=== PATIENT | male | born 1980 | race Caucasian/White ===

== ENCOUNTER 2017-09-17 20:31 | Emergency (ER) | payer MEDICARE, MEDICAID ==
[2017-09-17] MEDS ORDERED: Ibuprofen TAB* 800 MG PO ONE (22:35)
[2017-09-18 00:09] VITALS: BP 128/87
--- NOTE | 2017-09-18 05:34 | ED ---
Gloria Dyer Elizabeth, scribed for Can Wilson MD on 09/17/17 at 2242 . Upper Extremity Pain - HPI Summary HPI Summary: This patient is a 37 year old M presenting to [facility] with a chief complaint of intermittent right shoulder pain since 3 months ago. The patient rates the pain 8/10 in severity. Symptoms aggravated by movement. Symptoms alleviated by nothing. Per triage note, the patient reports that the pain began around the same time he started pushing buggies at [facility]. Patient denies any other pain. Pt denies any numbness, tingling, or weakness. - History of Current Complaint Chief Complaint: EDShoulderClavicleInj Stated Complaint: RT SHLDR PAIN Time Seen by Provider: 09/17/17 22:07 Hx Obtained From: Patient Onset/Duration: Started Weeks Ago - 3 months ago, Atraumatic, Still Present Timing: Intermittent Severity Initially: Moderate Severity Currently: Moderate Pain Location: Shoulder - right shoulder Aggravating Factor(s): Movement Alleviating Factor(s): Nothing Associated Signs & Symptoms: Negative: Swelling, Redness, Chest Pain, Back Pain , Neck Pain - Allergies/Home Medications Allergies/Adverse Reactions: Allergies Allergy/AdvReac Type Severity Reaction Status Date / Time MS Penicillins [Penicillins] Allergy Unknown Verified 02/05/15 20:31 Reaction Details PMH/Surg Hx/FS Hx/Imm Hx Endocrine/Hematology History: Denies: Hx Diabetes, Hx Thyroid Disease Cardiovascular History: Denies: Hx Hypertension Respiratory History: Denies: Hx Asthma, Hx Chronic Obstructive Pulmonary Disease (COPD) GI History: Denies: Hx Ulcer Infectious Disease History: No Infectious Disease History: Denies: Hx Clostridium Difficile, Hx Hepatitis, Hx Human Immunodeficiency Virus (HIV), Hx of Known/Suspected MRSA, Hx Shingles, Hx Tuberculosis, History Other Infectious Disease, Traveled Outside the [place] in Last 30 Days - Family History Known Family History: Positive: None - patient denies relevant FHx - Social History Alcohol Use: None Substance Use Type: Reports: None Smoking Status (MU): Current Every Day Smoker Type: Cigarettes, Smokeless Tobacco Amount Used/How Often: < 1 PPD Length of Time of Smoking/Using Tobacco: 1 month Review of Systems Negative: Fever Negative: Epistaxis Negative: Chest Pain Negative: Abdominal Pain Musculoskeletal: Other - right shoulder pain All Other Systems Reviewed And Are Negative: Yes Physical Exam - Summary Physical Exam Summary: Appearance: Well-appearing, no distress, Well-nourished Skin: Warm, color reflects adequate perfusion Head: Normal Head/Face inspection Eyes: Conjunctiva clear ENT: Normal inspection Neck: Supple, no nodes, no JVD. Respiratory: Lungs clear, Normal breath sounds, no respiratory distress Cardio: RRR, No murmur, pulses normal, brisk capillary refill Abdomen: soft, nontender, no guarding, no rebound Bowel sounds: present Musculoskeletal: Strength Intact/ ROM intact. No calf tenderness. No edema. Right shoulder nontender to palpation, tenderness with abduction at 90 degrees, no erythema, no swelling, no deformity Neuro: Alert, muscle tone normal, facial symmetry, speech normal, sensory/motor intact Psychological: Normal Triage Information Reviewed: Yes Vital Signs On Initial Exam: Initial Vitals Temp Pulse Resp BP Pulse Ox 98.1 F 74 16 142/96 99 09/17/17 20:34 09/17/17 20:34 09/17/17 20:34 09/17/17 20:34 09/17/17 20:34 Vital Signs Reviewed: Yes Diagnostics - Vital Signs Vital Signs Temp Pulse Resp BP Pulse Ox 09/17/17 20:34 98.1 F 74 16 142/96 99 - Laboratory Lab Statement: Any lab studies that have been ordered have been reviewed, and results considered in the medical decision making process. - Radiology Right Shoulder XR Xray Interpretation: No Acute Changes - normal XR, no fractures or dislocations Radiology Interpretation Completed By: ED Physician - Dr. Wilson, pending official report. Course/Dx - Diagnoses Differential Diagnosis/HQI/PQRI: Positive: Arthritis, Bursitis, Contusion, Fracture (Open), Hematoma, Laceration, Osteomyelitis, Septic Arthritis, Strain, Sprain Provider Diagnoses: Rotator cuff injury Discharge - Sign-Out/Discharge Documenting (check all that apply): Discharge/Admit/Transfer - Discharge Plan Condition: Stable Disposition: HOME Discharge Disposition Comment: discharge home Prescriptions: Ibuprofen TAB* [Motrin TAB* 800 MG] 800 mg PO Q6H 7 Days #20 tab Ibuprofen TAB* [Motrin TAB* 800 MG] 800 mg PO Q6H 7 Days #20 tab Patient Education Materials: Rotator Cuff Injury (ED) Forms: *Work Release Referrals: Mildred Payne MD [Primary Care Provider] - 2 Days Ajit Alaniz MD [Medical Doctor] - 3 Days Additional Instructions: Follow up with primary care physician in 2-3 days. Return to the emergency department with any new or worsening symptoms. - Billing Disposition and Condition Condition: STABLE Disposition: Home The documentation as recorded by the Gloria pinzon Elizabeth accurately reflects the service I personally performed and the decisions made by , Can Wilson MD.
--- NOTE | 2017-09-18 07:50 | RAD ---
HISTORY: shoulder pain COMPARISONS: None VIEWS: 4, Frontal internal rotation, external rotation, outlet, and axillary views of the right shoulder FINDINGS: BONE DENSITY: Normal. BONES: There is no displaced fracture. JOINTS: There is no arthropathy. ALIGNMENT: There is no dislocation. SOFT TISSUES: Unremarkable. OTHER FINDINGS: None. IMPRESSION: NO ACUTE OSSEOUS INJURY. IF SYMPTOMS PERSIST, RECOMMEND REPEAT IMAGING.
== END 2017-09-18 00:03 | disposition home or self-care (01) ==
LOC: ED 20:31
DX: S46.001A Unspecified injury of muscle(s) and tendon(s) of the rotator cuff of right shoulder, initial encounter (principal); X58.XXXA Exposure to other specified factors, initial encounter; Y92.9 Unspecified place or not applicable; F17.210 Nicotine dependence, cigarettes, uncomplicated; F17.290 Nicotine dependence, other tobacco product, uncomplicated; Z88.0 Allergy status to penicillin
CPT/HCPCS: 99282; A9270-GY

== ENCOUNTER 2017-11-10 01:42 | Emergency (ER) | payer MEDICARE, MEDICAID ==
[2017-11-10] MEDS ORDERED: NS 0.9% 1000 ML* 1,000 ML IV ONE ×2 (01:54→02:17)
[2017-11-10] MEDS ORDERED: Ketorolac INJ* 30 MG/ML 1 ML VIAL IV PUSH ONE ×2 (01:54→02:17)
[2017-11-10] MEDS ORDERED: Ketorolac INJ* 60 MG/2 ML VIAL IM ONE (02:14)
[2017-11-10 02:16] LABS: ABS Basophils 0.1 10^3/ul (0-0.2); ABS Eosinophils 0.1 10^3/ul (0-0.6); ABS Lymphocytes 1.4 10^3/ul (1.0-4.8); ABS Neutrophils 10.5 10^3/ul (1.5-7.7); ABS Nucleated RBC 0 10^3/ul; Eosinophil % 0.5 % (0-6); Hematocrit 40 % (42-52); Lymphocyte % 10.5 % (25-47); Mean Corpuscular HGB Conc 35 g/dl (31-36); Mean Corpuscular Hemoglobin 31 pg (27-31); Mean Corpuscular Volume 90 fL (80-94); Nucleated Red Blood Cells % 0.1; Platelet Count 198 10^3/ul (150-450); Red Blood Count 4.49 10^6/ul (4.00-5.40); Red Cell Distribution Width 14 % (10.5-15); White Blood Count 13.1 10^3/ul (3.5-10.8)
[2017-11-10] MEDS ORDERED: Metoclopramide IV* 5 MG/ML 2 ML VIAL IV ONE (02:16)
[2017-11-10 02:41] LABS: INR 0.92 (0.77-1.02)
[2017-11-10 02:46] LABS: Urine Appearance Clear; Urine Blood 1+ (Negative); Urine Color Yellow; Urine Ketones Negative (Negative); Urine Protein Negative (Negative); Urine Red Blood Cell 3+(>10/hpf) (Absent); Urine Specific Gravity 1.014 (1.010-1.030); Urine Urobilinogen Negative (Negative); Urine White Blood Cell Trace(0-5/hpf) (Absent)
[2017-11-10] MEDS ORDERED: Tamsulosin CAP* 0.4 MG PO ONE (02:47)
[2017-11-10 02:50] LABS: EGFR Non-African American 50.3 (>60)
[2017-11-10 04:16] VITALS: BP 126/75
--- NOTE | 2017-11-10 04:19 | ED ---
Abdominal Pain/Male - HPI Summary HPI Summary: This is scribe Geovanny Guardado documenting for attending Steve Payton MD. Patient is a 37 y/o M BIBA w/ c/o left flank pain onsetting yesterday. On triage , pain is rated 8/10 and nothing is noted to aggravate/alleviate Sx. He states pain does not radiate and notes pain is currently lessening. N/V are denied. Home medications and allergies were reviewed. I, Dr. Payton, personally performed the services described in this documentation as scribed in my presence and it is both accurate and complete. - History of Current Complaint Chief Complaint: EDFlankSivain Stated Complaint: FLANK PAIN Time Seen by Provider: 11/10/17 01:45 Hx Obtained From: Patient Onset/Duration: Lasting Days - onset yesterday, Still Present - pain is reported to be lessening Timing: Constant Severity Currently: Severe Pain Intensity: 8 Pain Scale Used: 0-10 Numeric - 8/10 Location: Flank - left-side Radiates: No Aggravating Factor(s): Nothing Alleviating Factor(s): Nothing - Allergies/Home Medications Allergies/Adverse Reactions: Allergies Allergy/AdvReac Type Severity Reaction Status Date / Time MS Penicillins [Penicillins] Allergy Unknown Verified 02/05/15 20:31 Reaction Details Home Medications: Home Medications Calcium Carbonate/Vitamin D3 [Calcium 600+D [place]] 1 tab PO DAILY [History Confirmed 11/10/17] Loratadine 10 mg PO DAILY 11/10/17 [History Confirmed 11/10/17] Naproxen [Naproxen 500 mg tab] 1,000 mg PO Q12HR PRN 11/10/17 [History Confirmed 11/10/17] PMH/Surg Hx/FS Hx/Imm Hx Endocrine/Hematology History: Denies: Hx Diabetes, Hx Thyroid Disease Cardiovascular History: Denies: Hx Hypertension Respiratory History: Denies: Hx Asthma, Hx Chronic Obstructive Pulmonary Disease (COPD) GI History: Denies: Hx Ulcer Infectious Disease History: No Infectious Disease History: Denies: Hx Clostridium Difficile, Hx Hepatitis, Hx Human Immunodeficiency Virus (HIV), Hx of Known/Suspected MRSA, Hx Shingles, Hx Tuberculosis, History Other Infectious Disease, Traveled Outside the [place] in Last 30 Days - Family History Known Family History: Negative: Blood Disorder - Social History Alcohol Use: None Substance Use Type: Reports: None Smoking Status (MU): Current Every Day Smoker Type: Cigarettes, Smokeless Tobacco Amount Used/How Often: < 1 PPD Length of Time of Smoking/Using Tobacco: 1 month Review of Systems Negative: Vomiting, Nausea Positive: flank pain - left-sided All Other Systems Reviewed And Are Negative: Yes Physical Exam - Summary Physical Exam Summary: VITAL SIGNS: Reviewed. GENERAL: Patient is a well-developed and nourished male who is lying comfortable in the stretcher. Patient is not in any acute respiratory distress. HEAD AND FACE: No signs of trauma. No ecchymosis, hematomas or skull depressions. No sinus tenderness. EYES: PERRLA, EOMI x 2, No injected conjunctiva, no nystagmus. EARS: Hearing grossly intact. Ear canals and tympanic membranes are within normal limits. MOUTH: Oropharynx within normal limits. NECK: Supple, trachea is midline, no adenopathy, no JVD, no carotid bruit, no c- spine tenderness, neck with full ROM. CHEST: Symmetric, no tenderness at palpation LUNGS: Clear to auscultation bilaterally. No wheezing or crackles. CVS: Regular rate and rhythm, S1 and S2 present, no murmurs or gallops appreciated. ABDOMEN: Soft, non-tender. No signs of distention. No rebound no guarding, and no masses palpated. Bowel sounds are normal. EXTREMITIES: FROM in all major joints, no edema, no cyanosis or clubbing. NEURO: Alert and oriented x 3. No acute neurological deficits. Speech is normal and follows commands. SKIN: Dry and warm Triage Information Reviewed: Yes Vital Signs On Initial Exam: Initial Vitals Temp Pulse Resp BP Pulse Ox 98.0 F 73 20 161/100 94 11/10/17 01:46 11/10/17 01:46 11/10/17 01:46 11/10/17 01:46 11/10/17 01:46 Vital Signs Reviewed: Yes Diagnostics - Vital Signs Vital Signs Temp Pulse Resp BP Pulse Ox 11/10/17 01:46 98.0 F 73 20 161/100 94 - Laboratory Lab Results: Lab Results 11/10/17 11/10/17 11/10/17 Range/Units 02:07 02:07 02:09 WBC 13.1 H (3.5-10.8) 10^3/ul RBC 4.49 (4.00-5.40) 10^6/ul Hgb 14.0 (14.0-18.0) g/dl Hct 40 L (42-52) % MCV 90 (80-94) fL MCH 31 (27-31) pg MCHC 35 (31-36) g/dl RDW 14 (10.5-15) % Plt Count 198 (150-450) 10^3/ul MPV 8.0 (7.4-10.4) um3 Neut % (Auto) 80.3 (38-83) % Lymph % (Auto) 10.5 L (25-47) % Webb % (Auto) 7.9 H (0-7) % Eos % (Auto) 0.5 (0-6) % Baso % (Auto) 0.8 (0-2) % Absolute Neuts (auto) 10.5 H (1.5-7.7) 10^3/ul Absolute Lymphs (auto) 1.4 (1.0-4.8) 10^3/ul Absolute Monos (auto) 1.0 H (0-0.8) 10^3/ul Absolute Eos (auto) 0.1 (0-0.6) 10^3/ul Absolute Basos (auto) 0.1 (0-0.2) 10^3/ul Absolute Nucleated RBC 0 10^3/ul Nucleated RBC % 0.1 INR (Anticoag Therapy) 0.92 (0.77-1.02) APTT 33.4 (26.0-36.3) seconds Sodium 137 (135-145) mmol/L Potassium 3.5 (3.5-5.0) mmol/L Chloride 101 (101-111) mmol/L Carbon Dioxide 26 (22-32) mmol/L Anion Gap 10 (2-11) mmol/L BUN 19 (6-24) mg/dL Creatinine 1.56 H (0.67-1.17) mg/dL Est GFR ( Amer) 60.9 (>60) Est GFR (Non-Af Amer) 50.3 (>60) BUN/Creatinine Ratio 12.2 (8-20) Glucose 105 H (70-100) mg/dL Calcium 10.3 (8.6-10.3) mg/dL Magnesium 1.7 L (1.9-2.7) mg/dL Total Bilirubin 0.50 (0.2-1.0) mg/dL AST 28 (13-39) U/L ALT 25 (7-52) U/L Alkaline Phosphatase 62 (34-104) U/L Total Creatine Kinase 139 (10-223) U/L C-Reactive Protein 9.06 H (<8.01) mg/L Total Protein 7.1 (6.4-8.9) g/dL Albumin 4.4 (3.2-5.2) g/dL Globulin 2.7 (2-4) g/dL Albumin/Globulin Ratio 1.6 (1-3) Lipase 16 (11.0-82.0) U/L Urine Color Urine Appearance Urine pH (5-9) Ur Specific Central (1.010-1.030) Urine Protein (Negative) Urine Ketones (Negative) Urine Blood (Negative) Urine Nitrate (Negative) Urine Bilirubin (Negative) Urine Urobilinogen (Negative) Ur Leukocyte Esterase (Negative) Urine WBC (Auto) (Absent) Urine RBC (Auto) (Absent) Urine Bacteria (Absent) Urine Glucose (Negative) 11/10/17 Range/Units 02:16 WBC (3.5-10.8) 10^3/ul RBC (4.00-5.40) 10^6/ul Hgb (14.0-18.0) g/dl Hct (42-52) % MCV (80-94) fL MCH (27-31) pg MCHC (31-36) g/dl RDW (10.5-15) % Plt Count (150-450) 10^3/ul MPV (7.4-10.4) um3 Neut % (Auto) (38-83) % Lymph % (Auto) (25-47) % Webb % (Auto) (0-7) % Eos % (Auto) (0-6) % Baso % (Auto) (0-2) % Absolute Neuts (auto) (1.5-7.7) 10^3/ul Absolute Lymphs (auto) (1.0-4.8) 10^3/ul Absolute Monos (auto) (0-0.8) 10^3/ul Absolute Eos (auto) (0-0.6) 10^3/ul Absolute Basos (auto) (0-0.2) 10^3/ul Absolute Nucleated RBC 10^3/ul Nucleated RBC % INR (Anticoag Therapy) (0.77-1.02) APTT (26.0-36.3) seconds Sodium (135-145) mmol/L Potassium (3.5-5.0) mmol/L Chloride (101-111) mmol/L Carbon Dioxide (22-32) mmol/L Anion Gap (2-11) mmol/L BUN (6-24) mg/dL Creatinine (0.67-1.17) mg/dL Est GFR ( Amer) (>60) Est GFR (Non-Af Amer) (>60) BUN/Creatinine Ratio (8-20) Glucose (70-100) mg/dL Calcium (8.6-10.3) mg/dL Magnesium (1.9-2.7) mg/dL Total Bilirubin (0.2-1.0) mg/dL AST (13-39) U/L ALT (7-52) U/L Alkaline Phosphatase (34-104) U/L Total Creatine Kinase (10-223) U/L C-Reactive Protein (<8.01) mg/L Total Protein (6.4-8.9) g/dL Albumin (3.2-5.2) g/dL Globulin (2-4) g/dL Albumin/Globulin Ratio (1-3) Lipase (11.0-82.0) U/L Urine Color Yellow Urine Appearance Clear Urine pH 6.0 (5-9) Ur Specific Central 1.014 (1.010-1.030) Urine Protein Negative (Negative) Urine Ketones Negative (Negative) Urine Blood 1+ A (Negative) Urine Nitrate Negative (Negative) Urine Bilirubin Negative (Negative) Urine Urobilinogen Negative (Negative) Ur Leukocyte Esterase Negative (Negative) Urine WBC (Auto) Trace(0-5/hpf) (Absent) Urine RBC (Auto) 3+(>10/hpf) A (Absent) Urine Bacteria Absent (Absent) Urine Glucose Negative (Negative) Result Diagrams: 11/10/17 02:07 11/10/17 02:07 Lab Statement: Any lab studies that have been ordered have been reviewed, and results considered in the medical decision making process. - CT CT abd/pel CT Interpretation: Positive (See Comments) CT Interpretation Completed By: Radiologist - Mild left hydronephrosis. Obstructing stone (4 mm size) at the left UV junction. 2 or 3 punctate non- obstructing right intrarenal stones. This report was reviewed by ED physician. Re-Evaluation - Re-Evaluation First Eval Re-Evaluation Time: 04:33 Comment: Discussed results of CT with patient. He will be discharged to home and follow up with [facility] in 1-2 days. Patient is agreeable with plan. Abdominal Pain Fem Course/Dx - Course Assessment/Plan: Patient is a 37 y/o M BIBA w/ c/o left flank pain onsetting yesterday. On triage, pain is rated 8/10 and nothing is noted to aggravate/ alleviate Sx. He states pain does not radiate and notes pain is currently lessening. N/V denied. Home medications and allergies were reviewed. Physical exam showed no abnormal findings. While in ED, patient vomited once. During ED course, patient was given fluids; tamsulosin Hcl 0.4 mg PO ONCE; Metoclopramid Hcl Reglan 10 mg IV ED ONCE; ketorolac tromethamine 30 mg IV PUSH ED ONCE. Labs showed urine RBC 3+(>10/hpf) A, urine blood 1+ A, CRP 9.06 H, magnesium 1.7 L, glucose 105 H, creatinine 1.56 H, WBC 13.1 H, Hct [address] abd/pel was taken, impressions are noted above. At 0433, Dr. Payton discussed results of CT with patient. Patient was diagnosed with left sided renal colic and left sided ureteral stone. He will be discharged to home and follow up with [facility] in 1-2 days. Ibuprofen TAB* [Motrin TAB* 800 MG] 800 mg PO Q6H PRN #30 tab, Metoclopramide TAB* [Reglan TAB*] 10 mg PO Q6H PRN #20 tab, Tamsulosin CAP* [ Flomax CAP*] 0.4 mg PO DAILY #7 cap were prescribed. Patient is agreeable with follow-up plan. - Diagnoses Provider Diagnoses: Left ureteral stone, Renal colic on left side Discharge - Sign-Out/Discharge Documenting (check all that apply): Patient Departure - discharge - Discharge Plan Condition: Stable Disposition: HOME Prescriptions: Ibuprofen TAB* [Motrin TAB* 800 MG] 800 mg PO Q6H PRN #30 tab PRN Reason: Pain Metoclopramide TAB* [Reglan TAB*] 10 mg PO Q6H PRN #20 tab PRN Reason: Nausea/Vomiting Tamsulosin CAP* [Flomax CAP*] 0.4 mg PO DAILY #7 cap Patient Education Materials: Kidney Stones (ED), Renal Colic (ED) Referrals: [facility] [Provider Group] - 2 Days Additional Instructions: Follow up with [facility] in 1-2 days. Return to ED for any changing or worsening symptoms.
--- NOTE | 2017-11-10 08:30 | RAD ---
INDICATION: Flank pain COMPARISON: None TECHNIQUE: Noncontrast axial source images were acquired from the level hemidiaphragms to the symphysis pubis as part of CT imaging for renal stone. Lung bases: The lung bases are clear. Liver: The liver is normal in size. Noncontrast imaging shows no evidence of a hepatic mass or ductal dilatation. Gallbladder: There are no calcified gallstones. There is no evidence of wall thickening or pericholecystic fluid.. Spleen: The spleen is normal in size. The noncontrast CT appearance is normal. Pancreas: Noncontrast imaging shows no pancreatic mass or ductal dilitation. Adrenal glands: No masses are identified. Kidneys/Bladder: There is mild left-sided hydronephrosis and hydroureter with mild perinephric stranding. There is a 4 mm left UVJ calculus producing the mild obstructive findings. There are several tiny 1 to 2 mm right renal calculi in the mid and lower pole. Adenopathy: There is no evidence of intraperitoneal or retroperitoneal adenopathy. Evaluation is limited without oral contrast. Fluid collections: There are no free or localized fluid collections. Vessels: The aorta and iliac vessels are normal in caliber. There are no significant atherosclerotic changes. The IVC appears normal Pelvic organs: The uterus and adnexa appear normal GI tract: Evaluation of the bowel is limited without oral contrast. The stomach, small bowel, and lower GI tract appear grossly normal. There are no obstructive findings. The appendix is visualized and appears normal. Soft tissues: No soft tissue abnormalities of the extraperitoneal abdomen or pelvis are identified. Osseous structures: There are no acute osseous findings. IMPRESSION: 4 mm left UVJ calculus producing mild obstructive findings. Additional, tiny, nonobstructive right renal calculi
== END 2017-11-10 04:53 | disposition home or self-care (01) ==
LOC: ED 01:42
DX: N20.1 Calculus of ureter (principal); N20.0 Calculus of kidney; Z88.0 Allergy status to penicillin; F17.210 Nicotine dependence, cigarettes, uncomplicated
CPT/HCPCS: 36415; 74176; 80053; 81003; 81015; 82550; 83690; 83735; 85025; 85610; 85730; 86140; 87086; 96374; 96375; 99284; J1885; J2765